=== PATIENT | male | born 1935 | race Caucasian/White ===

== ENCOUNTER 2016-05-09 05:19 | Observation (INO) | payer MEDICARE ==
[~2016-05-09] VITALS: Ht 167.6 cm; Wt 88.3 kg
[~2016-05-09 05:19] MED LIST: FURO20TA PO; METO50TA PO; POTACRY9 PO; THERM PO
[2016-05-09] MEDS ORDERED: ceFAZolin 2 GM PREMIX 50 ML IV SCH (06:15)
[2016-05-09] MEDS ORDERED: SODIUM BICARBONATE 8.4% INJ 50 ML ONE (06:16)
[2016-05-09] MEDS ORDERED: BUPIVACAINE HCL PF 0.5% 30 ML VIAL ONE (06:17)
[2016-05-09] MEDS ORDERED: LIDOCAINE 1%/EPINEPHrine 1:100,000 SOLN 20 ML VIAL ONE (06:17)
[2016-05-09 06:29] VITALS: BP 185/93; PULSE 74; RESP 20; TEMP 98.3; O2SAT 96
[2016-05-09] MEDS ORDERED: BUPIVACAINE/EPINEPHRINE 0.25% PF 30 ML VIAL ONE (06:29)
[2016-05-09 06:36] LABS: AUTOMATED NEUTROPHIL # 6.9 TH/MM3 (1.8-7.7); BASOPHIL # 0.1 TH/MM3 (0-0.2); BASOPHIL % 0.4 % (0.0-2.0); EOSINOPHIL # 0.1 TH/MM3 (0-0.4); HEMATOCRIT 46.3 % (39.0-51.0); HEMO FLAGS DIFF FINAL; LYMPH % 30.6 % (9.0-44.0); LYMPHOCYTE # 3.6 TH/MM3 (1.0-4.8); MEAN CELL VOLUME 96.6 FL (80.0-100.0); MEAN CORPUSCULAR HEMOGLOBIN 32.9 PG (27.0-34.0); MEAN CORPUSCULAR HGB CONC 34.1 % (32.0-36.0); MONO % 10.2 % (0.0-8.0); NEUT % 57.8 % (16.0-70.0); PLATELET COUNT 263 TH/MM3 (150-450); RED BLOOD COUNT 4.79 MIL/MM3 (4.50-5.90); RED CELL DISTRIBUTION WIDTH 13.2 % (11.6-17.2); WHITE BLOOD COUNT 11.9 TH/MM3 (4.0-11.0)
[2016-05-09 06:48] LABS: BICARBONATE 25.4 MEQ/L (21.0-32.0); POTASSIUM 4.1 MEQ/L (3.5-5.1)
[2016-05-09] MEDS ORDERED: ACETAMINOPHEN 1000 MG/100 ML VIAL IV ONE (07:20)
[2016-05-09] MEDS ORDERED: DEXAMETHASONE SOD PHOS 4 MG/ML VIAL ONE (07:20)
[2016-05-09] MEDS ORDERED: FAMOTIDINE 20 MG/2 ML VIAL ONE (07:20)
[2016-05-09] MEDS ORDERED: SUGAMMADEX SODIUM 200 MG/2 ML VIAL IV PUSH ONE ×2 (07:20)
[2016-05-09] MEDS ORDERED: MIDAZOLAM HCL 5 MG/5 ML VIAL ONE (07:20)
[2016-05-09] MEDS ORDERED: BUPIVACAINE LIPOSOME PF 1.3% 20 ML VIAL ONE (07:48)
[2016-05-09] MEDS ORDERED: INSULIN HUMAN REGULAR 1,000 UNITS/10 ML VIAL SQ PRN (09:00)
[2016-05-09] MEDS ORDERED: LACTATED RINGER'S 1000 ML IV SCH (09:00)
[2016-05-09] MEDS ORDERED: SODIUM CHLORID 0.9% 500 ML IV SCH (09:00)
[2016-05-09] MEDS ORDERED: METOPROLOL TARTRATE 25 MG TAB PO PRN (09:00)
[2016-05-09] MEDS ORDERED: Post-op Orders (for Pharmacy) MISC XX ONE (10:08)
[2016-05-09] MEDS ORDERED: fentaNYL CITRATE 250 MCG/5 ML AMP ONE (10:17)
[2016-05-09] MEDS ORDERED: ONDANSETRON HCL 4 MG/2 ML VIAL IV PRN (10:45)
[2016-05-09] MEDS ORDERED: MAGNESIUM HYDROXIDE SUSP 30 ML CUP PO PRN (10:45)
[2016-05-09] MEDS ORDERED: BENZOCAINE 20% ORAL SPR 60 ML CAN MT PRN (10:45)
[2016-05-09] MEDS ORDERED: SODIUM CHLORIDE 0.9% FLUSH 5 ML FLUSH IVF PRN (10:45)
[2016-05-09] MEDS ORDERED: DEXTROSE 50% IN WATER 50 ML VIAL(D50) IV PUSH PRN (10:45)
[2016-05-09] MEDS ORDERED: diphenhydrAMINE HCL 25 MG CAP PO PRN (10:45)
[2016-05-09] MEDS ORDERED: GLUCAGON 1 MG/ML VIAL OTHER PRN (10:45)
[2016-05-09] MEDS: SODIUM CHLORIDE 0.9% FLUSH 5 ML FLUSH IVF SCH ×2 (10:55→21:42)
[2016-05-09] MEDS: INSULIN NovoLIN REGULAR SUPPLEMENTAL SCALE SQ SCH ×3 (10:55→21:00)
[2016-05-09] MEDS: D5-1/2 NS + KCL 20 MEQ INJ 1,000 ML IV SCH ×2 (10:55→20:40)
[2016-05-09] MEDS ORDERED: DO NOT ADM ANY ANTICOAGULANT DRUGS XX PRN (11:00)
[2016-05-09] MEDS: PANTOPRAZOLE SODIUM 40 MG VIAL IV SCH (11:00)
--- NOTE | 2016-05-09 11:49 | HHI.PR ---
Immediate Post Op Note Procedure Date: May 09, 2016 Pre Op Diagnosis: (1) Ventral hernia Post Op Diagnosis: (1) Ventral hernia Surgeon: Noah Barajas Cream Hauler(s): FLORIDA Sandoval Procedure: open ventral hernia repair with mesh Findings: 8cm by 14cm ventral hernia Complications: none Specimen(s) removed: none Estimated blood loss: 50ml Anesthesia: General, Regional Block Drains: None IVF Patient to: PACU Patient Condition: Good Noah Barajas MD May 09, 2016 11:49
[2016-05-09] MEDS ORDERED: ePHEDrine/NS 50 MG/5 ML SYR IV ONE (12:00)
[2016-05-09] MEDS ORDERED: NEOSTIGMINE 3 MG/3 ML SYR IV ONE (12:00)
[2016-05-09] MEDS ORDERED: PROPOFOL 200 MG/20 ML AMP IV ONE (12:00)
[2016-05-09] MEDS ORDERED: ONDANSETRON HCL 4 MG/2 ML VIAL IV PUSH ONE (12:00)
[2016-05-09] MEDS: ACETAMINOPHEN 1000 MG/100 ML VIAL IV SCH ×2 (12:56→20:00)
[2016-05-09] MEDS: METOPROLOL TARTRATE 50 MG TAB PO SCH (21:42)
[2016-05-10] VITALS: BP 133/60; PULSE 71; RESP 16; TEMP 96.6; O2SAT 93
[2016-05-10] MEDS: ACETAMINOPHEN 1000 MG/100 ML VIAL IV SCH ×2 (01:42→09:39)
[2016-05-10] MEDS: D5-1/2 NS + KCL 20 MEQ INJ 1,000 ML IV SCH (04:35)
[2016-05-10] MEDS: INSULIN NovoLIN REGULAR SUPPLEMENTAL SCALE SQ SCH ×4 (04:35→19:59)
[2016-05-10 08:00] VITALS: BP 166/70; PULSE 65; RESP 17; TEMP 96; O2SAT 94
[2016-05-10] MEDS: POTASSIUM CHLORIDE 10 MEQ CONTROLLED RELEASE TAB PO SCH (09:38)
[2016-05-10] MEDS: FUROSEMIDE 20 MG TAB PO SCH (09:38)
[2016-05-10] MEDS: METOPROLOL TARTRATE 50 MG TAB PO SCH ×2 (09:38→19:56)
[2016-05-10] MEDS: SODIUM CHLORIDE 0.9% FLUSH 5 ML FLUSH IVF SCH ×2 (09:39→19:56)
[2016-05-10] MEDS: ENOXAPARIN SODIUM 40 MG/0.4 ML SYRINGE SQ SCH (09:39)
[2016-05-10] MEDS: PANTOPRAZOLE SODIUM 40 MG VIAL IV SCH (11:50)
--- NOTE | 2016-05-10 15:29 | HHI.PR ---
Subjective Subjective Notes no new c/o, pain ok Objective Vitals/I&O Vital Signs Date Time Temp Pulse Resp B/P Pulse Ox O2 Delivery O2 Flow Rate FiO2 05/10/16 08:00 96.0 65 17 166/70 94 05/09/16 20:50 Room Air 05/09/16 17:00 2 Cardiovascular: Regular Lungs: Clear Abdomen: Non-distended, Post-op tenderness Extremities: No edema, Perfused, SCD's on A/P Assessment and Plan 80yo male POD#1 VHR with mesh, stable. OOB pain ok HLIV regular diet Noah Barajas MD May 10, 2016 15:29
[2016-05-10 16:00] VITALS: BP 170/76; PULSE 66; RESP 18; TEMP 95.6; O2SAT 93
[2016-05-10 20:00] VITALS: BP 126/59; PULSE 59; RESP 18; TEMP 97.7; O2SAT 94
[2016-05-11] VITALS: BP 150/70; PULSE 66; RESP 18; TEMP 96.3; O2SAT 92
[2016-05-11] MEDS: INSULIN NovoLIN REGULAR SUPPLEMENTAL SCALE SQ SCH (05:08)
--- NOTE | 2016-05-11 07:07 | HHI.PR ---
Subjective Subjective Notes pain ok, tolerating diet Objective Vitals/I&O Vital Signs Date Time Temp Pulse Resp B/P Pulse Ox O2 Delivery O2 Flow Rate FiO2 05/11/16 00:00 96.3 66 18 150/70 92 05/09/16 20:50 Room Air 05/09/16 17:00 2 Cardiovascular: Regular Lungs: Clear Abdomen: Non-distended, Post-op tenderness Extremities: No edema, Perfused A/P Assessment and Plan 80yo male POD#2 VHR with mesh, stable. pain ok binder on tolerating PO DC home today Noah Barajas MD May 11, 2016 07:07
[2016-05-11] MEDS ORDERED: HYDR-3288 PO (07:10)
[2016-05-11 08:00] VITALS: BP 131/61; PULSE 77; RESP 20; TEMP 95.8; O2SAT 94
[2016-05-11] MEDS: SODIUM CHLORIDE 0.9% FLUSH 5 ML FLUSH IVF SCH (08:51)
[2016-05-11] MEDS: ENOXAPARIN SODIUM 40 MG/0.4 ML SYRINGE SQ SCH (08:51)
[2016-05-11] MEDS: METOPROLOL TARTRATE 50 MG TAB PO SCH (08:51)
[2016-05-11] MEDS: FUROSEMIDE 20 MG TAB PO SCH (08:51)
[2016-05-11] MEDS: POTASSIUM CHLORIDE 10 MEQ CONTROLLED RELEASE TAB PO SCH (08:51)
--- NOTE | 2016-05-13 19:55 | MP ---
cc: SHARMILA NICOLE Corrected Copy: 06/13/16 DATE OF SURGERY: 05/09/2016 PREOPERATIVE DIAGNOSIS: Ventral incisional hernia. POSTOPERATIVE DIAGNOSIS Ventral incisional hernia. PROCEDURE The hernia is open, ventral hernia repair with posterior rectus advancement flap with mesh placement 8 cm x 14 cm. ATTENDING SURGEON: MD Karl. CORK GRINDER: Ninfa BARTHOLOMEW ANESTHESIA General and regional tap block. ESTIMATED BLOOD LOSS: 50 CC COMPLICATIONS None FINDINGS 8 cm x 14 cm ventral incisional hernia. INDICATIONS FOR PROCEDURE The patient is a 80-year-old male who has history of rectal cancer and pancreatic cancer. Status post surgery with diverting loop colostomy. The patient postoperatively did develop ventral incisional hernia at the inferior portion of the incision which was symptomatic and had some overlying skin necrosis and repair was indicated. Risks, benefits, alternatives to the surgery were explained to the patient in detail prior to procedure and the patient agreed to undergo the procedure. After formed was obtained the patient was taken to the operating room and placed in supine position and placed under general tracheal anesthesia. The patient did undergo a preoperative tap block prior to procedure. Therefore no local anesthetic was used. We then evaluated prep and drape of the patient's abdomen sterile fashion and the colostomy appliance was removed and Tegaderm was placed over this to maintain sterility of the field. At this point and time we opened the upper portion of the hernia sac and excised majority of the skin and hernia sac opening of open up the intra-abdominal portion of the abdomen. We then were able to take down the hernia sac bilaterally and expose both the rectus muscles. There is minimal adhesions in the abdomen and these were gently taken down with Metzenbaum scissors and reduced back into the abdomen. We then are able to elevate and open rectus sheath bilaterally. The full length of the hernia which was than 8 cm x 14 cm. We then at this point and time closed the remaining hernia sac. As we re-peritonealized the abdominal cavity with a running 0 Vicryl suture. We then closed posterior rectus sheath with multiple interrupted simple 0 Vicryl sutures and posterior rectus sheath. Then placed a custom cut oval shaped bioA absorbable mesh posterior to the anterior rectus sheath and a suture then was placed laterally with interrupted 0 Vicryl sutures. Then closed the midline with a #1 looped running PDS suture. At this point in time we then closed the Mehrdad fascia with a running 3-0 Vicryl suture. Close skin with 4-0 Monocryl and Dermabond. The patient had a new colostomy appliance applied and a binder was placed. The patient discontinued anesthesia taken to PACU in stable condition. The patient tolerated procedure well. No apparent complications. All counts were correct. I was present and scrubbed the entire procedure. MD ELBA Hernández/scarlett /11:53 AM /8:41 AM
== END 2016-05-11 10:33 | disposition home or self-care (01) ==
LOC: HSDC 05:19 → HSDI 10:43 → N07A 21:00
PROVIDERS: ADMIT Surgery; ATTEND Surgery
DX: K43.2 Incisional hernia without obstruction or gangrene (principal); E11.9 Type 2 diabetes mellitus without complications; I10 Essential (primary) hypertension; Z79.84 Long term (current) use of oral hypoglycemic drugs; Z85.07 Personal history of malignant neoplasm of pancreas; Z85.048 Personal history of other malignant neoplasm of rectum, rectosigmoid junction, and anus; Z93.3 Colostomy status; Z79.01 Long term (current) use of anticoagulants
CPT/HCPCS: 00832; 49560; 49568; 64488; 80048; 82948; 85025; 94150; 97162; C1781; C9113; C9290; G0378; G8987; G8988; J0131; J0690; J1100; J1650; J2250; J2405; J2710; J3010; J3480

== ENCOUNTER 2017-02-11 07:38 | Day surgery (SDC) | payer MEDICARE ==
[2017-02-11] VITALS (7 sets, daily range): BP systolic 121–189; BP diastolic 54–93; PULSE 70–81; RESP 18–20; TEMP 97.4–97.8; O2SAT 93–95
[~2017-02-11] VITALS: Ht 167.6 cm; Wt 90.0 kg
[~2017-02-11 07:38] MED LIST changes: +HYDR-3288 PO
[2017-02-11] MEDS ORDERED: POTA10CA PO (08:22)
[2017-02-11] MEDS ORDERED: SODIUM CHLOR 0.9% 1000 ML IV SCH (08:30)
[2017-02-11 09:07] LABS: AUTOMATED NEUTROPHIL # 9.5 TH/MM3 (1.8-7.7); BASOPHIL % 0.3 % (0.0-2.0); EOSINOPHIL # 0.1 TH/MM3 (0-0.4); EOSINOPHIL % 0.8 % (0.0-4.0); HEMATOCRIT 49.3 % (39.0-51.0); HEMOGLOBIN 16.7 GM/DL (13.0-17.0); LYMPH % 20.4 % (9.0-44.0); LYMPHOCYTE # 2.8 TH/MM3 (1.0-4.8); MEAN CELL VOLUME 100.1 FL (80.0-100.0); MEAN CORPUSCULAR HEMOGLOBIN 33.9 PG (27.0-34.0); MEAN CORPUSCULAR HGB CONC 33.9 % (32.0-36.0); MEAN PLATELET VOLUME 9.1 FL (7.0-11.0); MONO % 8.2 % (0.0-8.0); MONOCYTE # 1.1 TH/MM3 (0-0.9); NEUT % 70.3 % (16.0-70.0); PLATELET COUNT 270 TH/MM3 (150-450); RED BLOOD COUNT 4.92 MIL/MM3 (4.50-5.90); RED CELL DISTRIBUTION WIDTH 13.8 % (11.6-17.2); WHITE BLOOD COUNT 13.6 TH/MM3 (4.0-11.0)
[2017-02-11 09:11] LABS: PROTHROMBIN TIME - PATIENT 11.2 SEC (9.8-11.6)
[2017-02-11] MEDS ORDERED: LIDOCAINE 1%/EPINEPHrine 1:100,000 SOLN 20 ML VIAL ONE (09:33)
[2017-02-11] MEDS ORDERED: MIDAZOLAM HCL 2 MG/2 ML VIAL ONE (09:35)
--- NOTE | 2017-02-11 10:15 | PD.RAD ---
Post CT Procedure Prog Note Pre Procedure Diagnosis: (1) Pancreatic adenocarcinoma Post Procedure Diagnosis: (1) Pancreatic adenocarcinoma Procedure Date: Feb 11, 2017 Supervising Radiologist: Mg Rajan Anesthesia: Conscious Sedation Plan of Activity Patient to Unit: [facility]OPU Patient Condition: Good See PACS Report for procedural detail/treatment Mg Rajan MD Feb 11, 2017 10:15
--- NOTE | 2017-02-11 11:54 | RADRPT ---
EXAM DATE/TIME: 02/11/2017 09:50 [facility] COMPARISON: No previous studies available for comparison. INDICATIONS : History of pancreatic and colon CA with multiple abdominal masses. A left upper quadrant peritoneal m ass will be targeted. SEDATION TIME: 30 minutes BIOPSY SITE: Left abdomen MEDICATION(S): 1.) 2.5 mg midazolam (Versed) IV 2.) 125 mcg fentanyl (Sublimaze) IV DEVICE(S): 1.) 17 gauge introducer 2.) 18 gauge Temno core biopsy needle MEDICAL HISTORY : Congestive heart failure. Carcinoma, pancreas. Carcinoma, colon. SURGICAL HISTORY : Colostomy. ENCOUNTER: Initial ACUITY: 1 day PAIN SCORE: 0/10 LOCATION: Left abdomen A total of four core specimen(s) were obtained and sent to the laboratory for pathologic evaluation. PROCEDURE: 1. CT guided abdominal mass biopsy. 2. Conscious sedation with continuous EKG and oximetry monitoring. 3. EKG and oximetry remained stable throughout the procedure. Prior to the procedure informed consent was obtained. Any appropriate prior imaging studies were rev iewed. Using automated exposure control and adjustment of the mA and/or kV according to patient size, radiat ion dose was kept as low as reasonably achievable to obtain optimal diagnostic quality images. DICOM format image data is available electronically for review and comparison. The site was prepped in a sterile fashion. Full sterile technique was used, including cap, mask, bri rile gloves and gown and a large sterile sheet. Hand hygiene and 2% chlorhexidine and/or betadine/al cohol prep was utilized per protocol for cutaneous antisepsis. The skin and subcutaneous tissues wer e infiltrated with local anesthetic solution. With CT guidance the previously identified target was localized. Biopsy was performed using the presc ribed needle as above. In total, four 18 gauge core biopsies were obtained. Adequate hemostasis was o btained with compression at the puncture site. Follow-up CT scan reveals no hemorrhage. The patient tolerated the procedure well and there were no complications. The patient was returned to the Radiology Outpatient Unit in stable condition. CONCLUSION: Uncomplicated CT guided biopsy. Mg Rajan MD on February 11, 2017 at 11:52 Board Certified Radiologist. This report was verified electronically.
== END 2017-02-11 12:50 | disposition home or self-care (01) ==
LOC: HRAD 07:38 → HRIP 07:39 → HRAD 12:50
PROVIDERS: ATTEND Surgery
DX: C25.9 Malignant neoplasm of pancreas, unspecified (principal); I50.9 Heart failure, unspecified
CPT/HCPCS: 49180; 77012; 85025; 85610; 85730; 88307; 99152; 99153; J2250; J3010; J7030; 88305